=== PATIENT | male | born 2000 | race Hispanic/Latino ===

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

== ENCOUNTER 2021-01-11 11:54 | Emergency (ER) | payer MEDICAID ==
[~2021-01-11] VITALS: Ht 167.6 cm; Wt 59.0 kg
[2021-01-11 12:30] LABS: EOSINOPHILS % (AUTO) 0.8 % (0.0-8.0); HEMATOCRIT 47.5 % (42-54); LYMPHOCYTES % (AUTO) 25.6 % (21.0-51.0); MEAN CORPUSCULAR HEMOGLOBIN 29.8 pg (27.0-33.0); MEAN CORPUSCULAR HGB CONC 34.1 g/dL (32.0-36.0); MEAN CORPUSCULAR VOLUME 87.5 fL (80-100); MONOCYTES % (AUTO) 7.6 % (3.0-13.0); PLATELET COUNT (AUTO) 185 K/uL (130-400); RED BLOOD CELL COUNT(AUTO) 5.43 MIL/uL (4.50-6.20); RED CELL DISTRIBUTION WIDTH 12.2 % (11.0-15.5); WHITE BLOOD COUNT (AUTO) 6.1 K/uL (4.8-10.8)
[2021-01-11 12:41] LABS: POTASSIUM 3.9 mmol/L (3.5-5.1)
[2021-01-11 12:45] LABS: BILIRUBIN,TOTAL 0.6 mg/dL (0.2-1.0)
[2021-01-11 12:46] LABS: ALBUMIN 4.5 g/dL (3.5-5.0); TOTAL PROTEIN, SERUM 7.9 g/dL (6.0-8.3)
[2021-01-11] MEDS ORDERED: FAMO-136 PO (15:48)
[2021-01-11] MEDS ORDERED: FAMOTIDINE 20MG VIAL IV ONE ×2 (15:52→16:00)
[2021-01-11 16:14] VITALS: BP 119/68
== END 2021-01-11 16:16 | disposition home or self-care (01) ==
LOC: EDH 11:54
DX: K29.70 Gastritis, unspecified, without bleeding (principal)
CPT/HCPCS: 36415; 71046; 80053; 83690; 84484; 85025; 93005; 96374; 99285; S0028; J3490

== ENCOUNTER 2021-11-17 13:30 | Emergency (ER) | payer MEDICAID ==
[~2021-11-17] VITALS: Ht 167.6 cm; Wt 63.5 kg
[~2021-11-17 13:30] MED LIST: FAMO-136 PO
[2021-11-17 13:34] VITALS: BP 120/74
[2021-11-17 14:02] LABS: HEMATOCRIT 46.6 % (42-54); MEAN CORPUSCULAR HGB CONC 33.7 g/dL (32.0-36.0); MEAN CORPUSCULAR VOLUME 89.1 fL (80-100); RED BLOOD CELL COUNT(AUTO) 5.23 MIL/uL (4.50-6.20); RED CELL DISTRIBUTION WIDTH 12.3 % (11.0-15.5); WHITE BLOOD COUNT (AUTO) 8.5 K/uL (4.8-10.8)
[2021-11-17 14:09] LABS: POTASSIUM 4.4 mmol/L (3.5-5.1)
[2021-11-17 14:14] LABS: ALBUMIN 4.5 g/dL (3.5-5.0); TOTAL PROTEIN, SERUM 7.8 g/dL (6.0-8.3)
[2021-11-17 14:18] LABS: APPEARANCE,URINE CLEAR (CLEAR); BILIRUBIN,URINE SMALL (NEGATIVE); COLOR,URINE YELLOW (YELLOW); GLUCOSE, URINE (UA) NEGATIVE (NEGATIVE); KETONES,URINE 15 mg/dL (NEGATIVE); LEUKOCYTE ESTERASE ,URINE NEGATIVE (NEGATIVE); NITRATE,URINE NEGATIVE (NEGATIVE); OCCULT BLOOD,URINE NEGATIVE (NEGATIVE); PROTEIN,URINE NEGATIVE (NEGATIVE); UROBILINOGEN,URINE 0.2 mg/dL (0.2-1.0)
[2021-11-17] MEDS ORDERED: FAMOTIDINE 20MG TAB PO ONE (14:30)
[2021-11-17] MEDS ORDERED: DICYCLOMINE HCL 10 MG/5 ML ML PO ONE (14:30)
[2021-11-17] MEDS ORDERED: LIDOCAINE HCL 2% VISCOUS 15 ML UDCUP PO ONE (14:30)
[2021-11-17] MEDS ORDERED: MAG/ALUM/SIMETH 30 ML UDCUP PO ONE (14:30)
[2021-11-17] MEDS ORDERED: ONDANSETRON 4MG TABLET PO ONE (14:30)
[2021-11-17 14:52] LABS: BACTERIA,URINE Few /HPF (None Seen); MUCUS,URINE Moderate LPF (None Seen); RBC,URINE 0-1 /HPF (0-1); SQUAMOUS EPITHELIAL CELL,UR Few /HPF (0-2); WBC,URINE 0-1 /HPF (0-1)
[2021-11-17] MEDS ORDERED: DICY20TA2 PO (15:08)
== END 2021-11-17 15:16 | disposition home or self-care (01) ==
LOC: EDH 13:30
DX: A08.4 Viral intestinal infection, unspecified (principal)
CPT/HCPCS: 99284; 80053; 83690; 85027; 81001; 36415; Q0162